=== PATIENT | male | born 1945 | race Caucasian/White ===

== ENCOUNTER 2024-11-13 06:28 | Day surgery (SDC) | payer OTHER, SELFPAY | END 2024-11-13 11:03 | disposition home or self-care (01) | LOC: GI 06:28 | PROVIDERS: ATTENDING PHYSICIAN Internal Medicine | DX: K51.90 Ulcerative colitis, unspecified, without complications (principal); K63.5 Polyp of colon; K64.4 Residual hemorrhoidal skin tags; Z80.0 Family history of malignant neoplasm of digestive organs | CPT/HCPCS: 45331; 88305 ==

== ENCOUNTER → 2025-05-05 09:53 | Outpatient (REF) | payer OTHER, SELFPAY | LOC: RCS 09:53 | PROVIDERS: ATTENDING PHYSICIAN Family Medicine | DX: I27.20 Pulmonary hypertension, unspecified (principal) | CPT/HCPCS: 93306 ==